=== PATIENT | female | born 1995 | race African-American/Black ===

== ENCOUNTER 2016-08-13 22:58 | Emergency (ER) | payer OTHER ==
[~2016-08-13 22:58] MED LIST: PRENATAL VITAMI1 TA4 PO; ZOFRAN PO
[2016-08-13 23:25] LABS: BASOPHIL% 0.2 % (0-2.5); EOSINOPHIL% 0.2 % (0.0-7.0); HEMOGLOBIN 12.6 gm/dL (12.0-16.0); LYMPHOCYTE# 1.7 X10e3 (1.0-3.5); LYMPHOCYTE% 21.8 % (17.0-45.0); MEAN CELL VOLUME 89.6 FL (83-96); MEAN CORPUSCULAR HEMOGLOBIN 29.7 PG (28-34); MEAN CORPUSCULAR HGB CONC 33.2 g/dL (30-36); MEAN PLATELET VOLUME 9.7 FL (6.5-11.5); MONOCYTE# 0.5 X10e3 (0-1.0); MONOCYTE% 6.4 % (3.0-12.0); NEUTROPHIL# 5.7 X10e3 (1.5-7.1); NEUTROPHIL% 71.4 % (40-75); PLATELET COUNT 251 X10e3 (140-420); RED BLOOD COUNT 4.24 X10e (3.90-5.30); RED CELL DISTRIBUTION WIDTH 12.2 % (11.0-15.5); WHITE BLOOD COUNT 7.9 X10e3 (4.0-10.5)
[2016-08-13 23:26] LABS: DIFF IND NO
[2016-08-13 23:59] LABS: CALCIUM SERUM 9.3 mg/dL (8.4-10.2); CREATININE SERUM 0.4 mg/dL (0.6-1.4); GLOM FILT RATE Estimated 173.8 mL/min (>60); POTASSIUM 3.7 mmol/L (3.5-5.1)
== END 2016-08-14 00:33 | disposition home or self-care (01) ==
LOC: CED 22:58
PROVIDERS: Emergency Medicine
DX: G44.229 Chronic tension-type headache, not intractable (principal); G44.219 Episodic tension-type headache, not intractable; F41.0 Panic disorder [episodic paroxysmal anxiety]
CPT/HCPCS: 36415; 80048; 84703; 85025; 96374; 99284; J1885

== ENCOUNTER 2016-09-09 15:46 | Emergency (ER) | payer OTHER ==
--- NOTE | ~2016-09-09 | CR243 ---
[facility] A Service of [facility] & [facility] RADIOLOGY TEXT RESULTS PATIENT: NURA OCHOA LOCATION: CFTX : 95 UNIT #: [id number] AGE: [address]: Jenise Marques APRN SEX: F ORDER DR: [id number] [facility] [address] [place], [place] [address] [id number] E MR#: [id number] Acc #: [id number] NAME: NURA OCHOA : 1995 SEX: F STUDY DATE/TIME: 09/09/2016 15:51 UNIT: [facility] ROOM: STUDY DESCRIPTION: CR Thoracic Spine 3 Views Attending Physician: Jenise Marques A.P.R.N. Ordering Physician: Ed Austen Ashby M.D. Primary Care Physician: No Primary Care Physician MEDICAL IMAGING REPORT This report is preliminary unless electronic signature is present EXAM Thoracic spine, 4 views. DATE OF STUDY 09/09/2016 HISTORY 1 week history of back pain, scoliosis. Previous fusion. FINDINGS There has been extensive prior thoracic fusion from about T4 through T12. No evidence of device failure or other acute abnormality. Dictated by... Neal Wilson M.D. THIS IS AN ELECTRONICALLY VERIFIED REPORT Neal Wilson M.D. at 09/10/2016 3:51 PM BAILEY/mateo TD: 09/09/2016 17:24 JOB #: [id number] MEDICAL IMAGING REPORT Page 1 of 1 COPY
[2016-09-09 16:10] LABS: URINE SOURCE CLEAN CATCH
[2016-09-09 16:14] LABS: URINE BLOOD NEG (NEG); URINE COLOR DK YELLOW; URINE GLUCOSE NEG (NEG); URINE KETONE TRACE (NEG); URINE LEUKOCYTE ESTERASE TRACE (NEG); URINE NITRATE NEG (NEG); URINE PH 5.5 (5-8); URINE PROTEIN 3+ (NEG); URINE SPECIFIC GRAVITY 1.038 (1.003-1.035)
[2016-09-09 16:17] LABS: CULTURE INDICATED? YES; URBCS1 AUWI 0-2 /[HPF] (0-2); URINE BACTERIA AUWI 1+ (NEGATIVE); URINE SQUAMOUS EPITHELIAL CELL MOD /[HPF]
[2016-09-09 16:28] LABS: URINE APPEARANCE HAZY
[2016-09-09 16:30] LABS: URINE MUCUS PRESENT
== END 2016-09-09 17:03 | disposition home or self-care (01) ==
LOC: CFTX 15:46
PROVIDERS: Nurse Practitioner
DX: M54.6 Pain in thoracic spine (principal); G89.29 Other chronic pain; F43.10 Post-traumatic stress disorder, unspecified; F32.9 Major depressive disorder, single episode, unspecified; M41.9 Scoliosis, unspecified; Z98.890 Other specified postprocedural states
CPT/HCPCS: 72072; 81003; 84703; 87086; 96372; 99283; 99284; J1885